=== PATIENT | female | born 1985 | race Caucasian/White ===

== ENCOUNTER 2022-12-11 06:44 | Outpatient (REF) | payer OTHER, SELFPAY ==
[2022-12-11 09:09] LABS: MANUAL DIFF FLAG NO
[2022-12-11 09:21] LABS: Basophils Absolute Auto 0.1 X10*3/uL (0.0-0.2); Basophils Percent Auto 0.7 % (0-2); Eosinophils Absolute Auto 0.2 X10*3/uL (0.0-0.4); Eosinophils Percent Auto 1.3 % (0-4); Hematocrit 43.8 % (37.0-47.0); Hemoglobin 14.5 g/dl (12.0-16.0); Imm Gran Abs Auto 0.06 X10*3/uL (0.00-0.03); Imm Gran Pct Auto 0.5 % (0.0-0.4); Lymphocytes Absolute Auto 2.3 X10*3/uL (1.2-4.9); Lymphocytes Percent Auto 17.6 % (20-40); Mean Corpuscular HGB Conc 33.1 g/dl (31.0-35.0); Mean Corpuscular Volume 96.7 fL (80.0-98.0); Mean Platelet Volume 9.1 fL (9.4-12.3); Monocytes Absolute Auto 0.7 X10*3/uL (0.1-1.2); Monocytes Percent Auto 5.6 % (2-11); Neutrophils Absolute Auto 9.8 x10*3/uL (2.0-8.3); Neutrophils Percent Auto 74.3 % (45-73); Platelet Count 436 X10*3/uL (160-400); Red Blood Count 4.53 X10*6/uL (4.20-5.50); Red Cell Distribution Width 13.7 % (11.0-16.0); White Blood Count 13.1 X10*3/uL (4.8-10.8)
[2022-12-11 09:41] LABS: Alanine Aminotransferase 19 U/L (0-31); Albumin Level 4.3 g/dL (3.5-5.0); Alkaline Phosphatase 68 U/L (39-117); Anion Gap 16 (12-20); Aspartate Amino Transferase 13 U/L (5-31); Bilirubin Total 0.7 mg/dL (0.0-1.0); Blood Urea Nitrogen 9 mg/dL (9-16); Calcium 9.1 mg/dL (8.4-10.2); Carbon Dioxide 25 mmol/L (22-29); Chloride 103 mmol/L (96-108); Cholesterol 165 mg/dL; Estimated Glomerular Filt Rate > 60; Glucose Fasting 84 mg/dL (60-99); HDL Cholesterol 61 mg/dL; LDL Cholesterol Calculated 90 mg/dl; Potassium 3.8 mmol/L (3.3-5.1); Sodium 140 mmol/L (135-145); Total Protein 7.1 g/dL (6.5-8.0); Triglycerides 72 mg/dL
== END 2022-12-11 06:45 | disposition home or self-care (01) ==
LOC: HO.HMGCLDS 06:44
PROVIDERS: PCP Internal Medicine; Visit Provider Internal Medicine
DX: Z00.00 Encounter for general adult medical examination without abnormal findings (principal); E66.3 Overweight
CPT/HCPCS: 36415; 80053; 80061; 85025

== ENCOUNTER 2022-12-26 06:20 | Outpatient (REF) | payer OTHER, SELFPAY ==
[2022-12-26 11:37] LABS: Baso%MD 0.9 %; Eos%MD 1.6 %; Hematocrit 42.1 % (37.0-47.0); Hemoglobin 13.9 g/dl (12.0-16.0); IG%MD 0.3 %; Lymph%MD 19.3 %; Mean Corpuscular Hemoglobin 32.1 pg (27.0-33.0); Mean Corpuscular Volume 97.2 fL (80.0-98.0); Mean Platelet Volume 9.3 fL (9.4-12.3); Mono%MD 8.6 %; Neut%MD 69.3 %; Platelet Count 382 X10*3/uL (160-400); Red Blood Count 4.33 X10*6/uL (4.20-5.50); Red Cell Distribution Width 13.8 % (11.0-16.0); White Blood Count 8.8 X10*3/uL (4.8-10.8)
[2022-12-26 12:11] LABS: Lymphocytes Absolute Manual 1.8 X10*3/uL (1.2-4.9); Lymphocytes Percent Manual 20 % (20-40); Monocytes Absolute Manual 0.3 X10*3/uL (0.1-1.2); Monocytes Percent Manual 3 % (2-11); Neutrophils Percent Manual 77 % (45-73)
[2022-12-26 12:12] LABS: Burr Cells 1+ (0-2) /OIF; Platelet Estimate NORMAL (NORMAL); Platelet Morphology Comment NORMAL; RBC Morphology NOTED
[2022-12-26 14:20] LABS: Band Neutrophils Percent 0 % (3-5); Neutrophils Absolute Manual 6.8 X10*3/uL (2.0-8.3)
== END 2022-12-26 06:21 | disposition home or self-care (01) ==
LOC: HO.HMGCLDS 06:20
PROVIDERS: PCP Internal Medicine; Visit Provider Internal Medicine
DX: D72.829 Elevated white blood cell count, unspecified (principal)
CPT/HCPCS: 36415; 85007; 85027

== ENCOUNTER → 2023-01-06 13:36 | Outpatient (REF) | payer OTHER, SELFPAY ==
--- NOTE | 2023-01-06 13:39 | CA_ITS ---
Transthoracic Echocardiogram Patient (Last, First, Middle): Nirmala Shukla, Gender: Female Date of : 1985 Age: 37 Procedure Date: 01/06/2023 Procedure Type: Transthoracic Echocardiogram Location: OP Height: 152.4 cm Weight: 86.18 kg BSA: 1.83 m2 Heart Rate: bpm BP: 128 / 80 mmHg Used Car Salesperson: Referring MD: Marzena Dale MD Surveillance Monitor: Chad Maldonado MD Symptoms: R01.1 - Cardiac murmur, unspecified Study Quality: Fair ECG Rhythm: Sinus Conclusions: - Essentially normal study Findings Left Ventricle Normal left ventricular size, thickness, and systolic function. The visually estimated ejection fraction is between 55-60%. Spectral Doppler is indicative of a normal filling pattern. Right Ventricle Normal right ventricular cavity size and systolic function. Atria Both atria are normal in size. Interatrial shunt cannot be excluded. Aortic Valve Normal aortic valve structure and function. There is no aortic valve stenosis. There is no aortic valve regurgitation. Mitral Valve Normal mitral valve structure and function. There is trace mitral valve regurgitation. There is no mitral valve stenosis. Pulmonic Valve The pulmonic valve is likely normal. Tricuspid Valve Normal tricuspid valve structure. There is trace tricuspid valve regurgitation. The right ventricular systolic pressure is normal. The right ventricular systolic pressure is 20 mmHg. Normal right atrial pressure. There is no evidence of pulmonary hypertension. Great Vessels All visible segments of the aorta are normal in size. The pulmonary artery was not well visualized. Venous The inferior vena cava is normal in size and collapses greater than 50% with inspiration. Pericardium/Pleural There is no evidence of pericardial effusion. Measurements 2D Linear Measurements IVSd: 0.92 0.6-0.9/0.6-1.0 cm LVIDd: 5.33 3.9-5.3/4.2-5.9 cm LVIDd Index: 2.91 2.4-3.2/2.2-3.1 cm/m2 LVIDs: 3.65 2.0-3.6 cm LVPWd: 1.04 0.7-1.1 cm Ao Root: 2.40 2.1-3.5 cm LA Diam: 4.00 2.7-3.8/3.0-4.0 cm LAIDs Index: 2.19 1.5-2.3 cm/m2 LV Mass: 245.11 67-162/88-224 g LV Mass Index: 133.94 43-95/49-115 g/m2 LVOT Diam: 2.00 3.0+(-)1.3 cm Mitral Valve MV Pk E: 0.75 MV PK A: 1.09 MV Decel Time: 106.00 E/A: 0.70 E'Lateral: 7.51 E'Medial: 7.07 E/E' Med: 10.60 E/E' Lat: 9.90 PHT: 31.00 MVA PHT: 7.10 Decel Hampton: 7.02 Aortic Valve AoV Pk Jason: 1.90 AoV Mn Jason: 1.30 AoV VTI: 0.39 AoV Pk Grad: 14.00 Aov Mn Grad: 8.00 SADAF Cont.VTI: 1.83 LVOT LVOT Pk Jason: 1.08 LVOT Mn Jason: 0.75 LVOT VTI: 0.23 LVOT Pk Grad: 5.00 LVOT Mn Grad: 3.00 LVOT Diam: 2.00 LVOT Area: 3.14 Diastolic Function MV Pk E: 0.75 MV Pk A: 1.09 E/A: 0.70 E'Medial: 7.07 E/E' Med: 10.60 E' Laterial: 7.51 E/E' Lat: 9.90 Right Ventricle TAPSE (mm): 29.00 TVS' Jason: 11.00 Tricuspid Valve TR Pk Jason: 2.05 TR Pk Grad: 17.00 RA Press: 3.00 RVSP: 20.00 Great Vessels Aorta Ao Root-2D: 2.40 2.0-3.7 cm Ao Asc: 3.00 2.1-3.4 cm Pulmonary Valve PV Pk Jason: 1.84 Peak PV Grad: 14.00 Updated in Other Vendor System with Status of Final Chad Maldonado MD electronically signed on 01/07/2023 11:19:28 AM with status of Final
== END ==
LOC: HO.CARD 13:36
PROVIDERS: PCP Internal Medicine; Visit Provider Internal Medicine
DX: R01.1 Cardiac murmur, unspecified (principal)
CPT/HCPCS: 93306

== ENCOUNTER → 2023-01-06 13:39 | Outpatient (BNV) | payer OTHER, SELFPAY | PROVIDERS: PCP Internal Medicine; Visit Provider Internal Medicine Cardiovascular Disease | DX: R01.1 Cardiac murmur, unspecified (principal) | CPT/HCPCS: 93306 ==

== ENCOUNTER 2023-03-21 09:15 | Outpatient (AMB) | payer OTHER, SELFPAY ==
[2023-03-21 09:16] VITALS: BP 140/80; PULSE 116; TEMP 36.6; O2SAT 99; BMI 36.1
--- NOTE | 2023-03-21 09:16 | MHC.OFFWIV ---
Intake Vital Signs 03/21/23 09:16 Height 5 ft Weight 185 lb BMI 36.1 BP 140/80 H Blood Pressure Location Rt brachial Position Sitting Pulse 116 H Pulse Source Pulse Oximeter Temp 97.8 F Temp Source Temporal Artery Scan Pulse Oximetry (%) 99 Intake Visit Reasons: ESt/neck/right shoulder pain Intake Note: pt is here for c/o neck and right shoulder pain Patient Tobacco Use Status: Current everyday Tobacco user Allergies No Known Allergies Allergy (Verified 03/21/23 09:16) Do you need a note to return to daycare/school/sports/work: Yes HPI ESt/neck/right shoulder pain HPI Details pt is here for c/o neck and right shoulder pain PFSH Family History Mother CAD (coronary artery disease), Onset Age: 37 Social History Household Members 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, 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 Housing: Apartment Patient Tobacco Use Status: Current everyday Tobacco user Current occupational status: employed Cognitive needs: No Hearing needs: No Vision needs: No Review of Systems Const All systems reviewed & are unremarkable except as noted in HPI and below Physical Exam Vital Signs: Last Vital Signs Temp 97.8 F 03/21/23 09:16 Pulse 116 H 03/21/23 09:16 BP 140/80 H 03/21/23 09:16 Pulse Ox 99 03/21/23 09:16 BMI result Body Mass Index 36.1 Const General: cooperative, healthy appearing, comfortable, no acute distress, alert, awake, Physically active and well groomed; No anxious, diaphoretic, ill appearing, intoxicated appearing, poor hygiene or tired appearing Nutritional Appearance: average body habitus Orientation/consciousness: oriented to person Limitations: no limitations Resp Effort & Inspection: normal respiratory effort Cardio Rate: regular rate Rhythm: regular rhythm Skin Other: Good color, warm and dry Neuro General: oriented to person Extrem Right upper extremity: normal to inspection, full ROM, normal capillary refill, shoulder/upper arm (Tenderness to the trapezial muscle) Details: normal to inspection, tenderness, axillary nerve sensory function normal and normal ROM; no swelling and no deformity and Extremity exam: right hand Details: normal to inspection, normal capillary refill, neuromotor exam normal and no swelling; no cyanosis and no edema Psych Appearance: grossly normal Mental Status: mental status grossly normal Speech and movement: Normal speech and movement present Affect: normal affect Attitude: cooperative Thought process: Normal thought process present Insight: Good insight present (Psych) Judgement: Good judgement present (Psych) Assessment & Plan Assessment & Plan (1) Muscle spasm: Code(s): M62.838 - Other muscle spasm Plan: patient is a 37-year-old female with an apparent right trapezius spasm, that seems to be pinching a nerve and causing radicular symptoms down the arm. She is definitely tight in the trapezius, with increase in pain with range of motion. There appears to be no issue with the right shoulder joint itself. We discussed heat stretching and massage, and I wrote her for anti-inflammatory and muscle relaxer for use as needed. She does state that she usually sleeps on that side, so we discussed trialing sleep on the opposite side and propping for positioning. She will follow up if symptoms persist or worsen, or go to the emergency department with worrisome symptoms. Orders: Orders XR cervical spine 4V 03/21/23 M62.838 - Other muscle spasm Medications: New ibuprofen 800 mg PO Q8H PRN 30 tabs 0RF pain cyclobenzaprine 5 mg PO TID PRN 14 tabs 0RF muscle spasm Coding Level of Care Code Est Pt Level 4 (70717) Diagnoses Muscle spasm M62.838
== END 2023-03-21 09:54 | disposition home or self-care (01) ==
PROVIDERS: PCP Internal Medicine; Visit Provider Physician Assistant Medical
DX: M62.838 Other muscle spasm (principal)
CPT/HCPCS: 99051; 99214

== ENCOUNTER 2023-03-21 09:33 | Outpatient (REF) | payer OTHER, SELFPAY ==
--- NOTE | ~2023-03-21 | XR_ITS ---
EXAMINATION: XR CERVICAL SPINE CLINICAL INFORMATION: 3 weeks upper shoulder/back pain that radiates into right shoulder/arm. COMPARISON: None available. TECHNIQUE: 5 views of the cervical spine were obtained. FINDINGS: The cervical spine is visualized in its entirety. Alignment is within normal limits. Normal C1/2 articulation. Cervical vertebral body heights and disc spaces are well-maintained. Neural foramina are widely patent bilaterally. No prevertebral soft tissue swelling. Visualized lung apices are well aerated. XR/XR cervical spine 4V IMPRESSION: Unremarkable radiographs of the cervical spine.
== END 2023-03-21 09:34 | disposition home or self-care (01) ==
LOC: HO.HMGCX 09:33
PROVIDERS: PCP Internal Medicine; Visit Provider Physician Assistant Medical
DX: M62.838 Other muscle spasm (principal)
CPT/HCPCS: 72050

== ENCOUNTER 2023-05-05 12:27 | Outpatient (AMB) | payer OTHER, SELFPAY ==
--- NOTE | 2023-05-05 12:41 | A.OFFPC_ITS ---
Vital Signs 05/05/23 12:42 Height 5 ft Weight 179 lb BMI 35.0 BP 130/76 Blood Pressure Location Lt brachial Position Sitting Pulse 79 Pulse Source Pulse Oximeter Pulse Oximetry (%) 98 Oxygen Delivery Method Room Air Intake Visit Reasons: Pinched nerve in neck causing numbness down arm Intake Note: Pt is here today for a sick visit. Pt c/o pinched nerve in her neck, pt c/o numbness in her R arm. Pt states that she was seen in a walk in for this and its not getting better. Allergies No Known Allergies Allergy (Verified 03/21/23 09:16) Tobacco use date assessed: 12/09/22 HPI Pinched nerve in neck causing numbness down arm HPI Details Pt presents complaining of R side neck radiating to R shoulder and tingling sensation radiating from right shoulder to R index and thumb finger on and off worse when sitting or laying on the right side since January. Patient denies any injury. 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 She tried ibuprofen on and off with some relief and had a normal C-spine x-ray. 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 Housing: Apartment Patient Tobacco Use Status: Current everyday Tobacco user Current occupational status: employed Cognitive needs: No Hearing needs: No Vision needs: No Review of Systems Const All systems reviewed & are unremarkable except as noted in HPI and below Reports no additional complaints Eyes Reports no additional complaints ENT Reports no additional complaints Card Reports no additional complaints Resp Reports no additional complaints GI Reports no additional complaints Reports no additional complaints Physical exam (Primary Care) Vital Signs: Last Vital Signs Pulse 79 05/05/23 12:42 BP 130/76 05/05/23 12:42 Pulse Ox 98 05/05/23 12:42 Oxygen Delivery Method Room Air 05/05/23 12:42 BMI result Body Mass Index 35.0 Tobacco/Smoking Status: Tobacco use Status Tobacco use date assessed 12/09/22 05/05/23 12:41 Patient Tobacco Use Status Current everyday Tobacco 05/05/23 12:41 Const General: no acute distress HENMT Head: Yes normal to inspection Face and sinus: Yes normal facial exam Neck Neck: Yes no lymphadenopathy and Yes supple Resp Effort & Inspection: normal respiratory effort Auscultation: clear to auscultation bilaterally Cardio Rhythm: regular rhythm Heart sounds: S1 normal heart sound present and S2 normal heart sound present Back/Spine/Pelvis Other: Paraspinal tenderness in the right lower cervical region, right shoulder - full range of motion, motor strength 5/5 of both upper extremities proximal and distal, right hand automotive service assistant 5/5, deep tendon reflexes 2+ bilaterally in upper extremities Assessment and Plan Assessment & Plan (1) Cervical radicular pain: Code(s): M54.12 - Radiculopathy, cervical region Plan: try physical therapy and right wrist brace at night, follow-up in 1 month. If the symptoms persist MRI will be obtained Orders: Orders PT Evaluation and Treatment Today M54.12 - Radiculopathy, cervical region Coding Level of Care Code Est Pt Level 3 (21949) Diagnoses Cervical radicular pain M54.12
[2023-05-05 12:42] VITALS: BP 130/76; PULSE 79; O2SAT 98; BMI 35.0
== END 2023-05-05 13:18 | disposition home or self-care (01) ==
PROVIDERS: PCP Internal Medicine; Visit Provider Internal Medicine
DX: M54.12 Radiculopathy, cervical region (principal)
CPT/HCPCS: 99213

== ENCOUNTER 2023-06-05 09:00 | Outpatient (RCR) | payer OTHER, SELFPAY ==
--- NOTE | 2023-05-12 09:18 | MHC.PT.EP ---
[facility] [place] Office [place] Office [place] Office [address] Una Hansen [address] [phone] F: [phone] F: [phone] F: [phone] F: [phone] Physical Therapy Plan of Care Date of Evaluation: 05/12/23 Date of Surgery: Diagnosis: This is a 37 female presenting to skilled PT with a script for radiculopathy, cervical region. Assessment: This is a 37 female presenting to skilled PT with a script for radiculopathy, cervical region. Patient reporting ongoing symptoms that have been getting worse since January of this year. Pain starts at lateral R side of c-spine, radiates into the scap, down the posterior and lateral arm/humerus and into the first 2 digits. She has numbness in the digits, entire arm is dull and achy and tingling and this is throughout the entire arm. 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 Patient reports symptoms increase when I'm relaxed - sitting on the couch, laying down, driving . No change in position improves her symptoms. Assessment reveals pain that ranges from up to a 7/10 at the worst. Patient demos decreased R shoulder and R cervical ROM, strength of R shoulder and fertilizer loader strength, TTP at c-spine, UT and impaired posture with forward head and rounded shoulders. She demos a prominent C7. Based on functional limitations, impaired QOL and pain tolerance patient is a good candidate for skilled PT 2x/wk for 5wks. Frequency and Duration: The patient will be seen 2x/wk for 5 wks Short Term Goals: (in 2 wks) I in HEP Improve cervical ROM to the R by at least 10 degs Demo proper cervical positioning with progression of UB strengthening exercises without cues from PT Intermediate Goals: (In 4 wks) Centralize symptoms for at least 1 week Report 50% improvement in QOL Tolerate sleeping through the night without waking from pain Improve NDI by 10 points Improve pain to no more than 2/10 at the worst Treatment Plan: Modalities to reduce pain, spasms and effusion. Manual therapy to restore motion and function. Therapeutic exercise to improve strength and flexibility. Neuromuscular re-education for posture and balance. Therapeutic activities to return to functional activities of daily living. Electronically signed by: Radha Carpenter PT Please sign and return to therapist. Thank you for your referral.
--- NOTE | 2023-06-25 08:32 | MHC.PT.DC ---
[facility] [place] Office [place] Office [place] Office [address] Una Hansen [address] [phone] F: [phone] F: [phone] F: [phone] F: [phone] Physical Therapy Discharge Report Diagnosis: This is a 37 female presenting to skilled PT with a script for radiculopathy, cervical region. Date of Surgery: Date of Evaluation: 05/12/23 Date of Discharge: 06/25/23 Treatments to Date: 4 Cancellations to Date: 0 No Shows to Date: 0 Discharge Status: Achieved Goals Improved Function Independent with HEP Discharge Summary: At the last tx note 05/26: Patient reports that she has not had any symptoms as of the last week and a half. She has also not having to take ibuprofen to manage pain at night. 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 We weaned to 1x/wk, has followed up with PCP and was educated on a new HEP for general strengthening to progress to I gym program. She has met her goals, centralized her symptoms and understands how to manage her pain if it returns. Electronically signed by: Radha Carpenter PT Please sign and return to therapist. Thank you for your referral.
== END 2023-06-25 08:32 | disposition home or self-care (01) ==
LOC: HO.PTCHIC 09:00
PROVIDERS: PCP Internal Medicine; Visit Provider Internal Medicine
DX: M54.12 Radiculopathy, cervical region (principal)
CPT/HCPCS: 97110; 97140; 97161; 97162

== ENCOUNTER 2023-10-01 08:05 | Outpatient (AMB) | payer OTHER, SELFPAY ==
[2023-10-01 08:16] VITALS: BP 128/76; PULSE 83; O2SAT 98; BMI 32.2
--- NOTE | 2023-10-01 08:16 | A.OFFPC_ITS ---
Vital Signs 10/01/23 08:16 Height 5 ft Weight 165 lb BMI 32.2 BP 128/76 Blood Pressure Location Rt brachial Position Sitting Pulse 83 Pulse Source Pulse Oximeter Pulse Oximetry (%) 98 Oxygen Delivery Method Room Air Intake Visit Reasons: Med help with alcoholism OK per CÉSAR Intake Note: Pt is here today for a follow up visit to discuss some questions. Allergies No Known Allergies Allergy (Verified 10/01/23 08:16) Medication List - Last Reconciled 10/01/23 by Marzena Dale MD bupropion HCl XL (Wellbutrin XL) 150 mg PO DAILY etonogestrel (Nexplanon) subdermal Tobacco use date assessed: 10/01/23 Dental Screening Dental Screen Date: 10/01/23 Did you have a dental visit in the last 12 months?: No Did you have a dental problem in the last 6 months where you did not have access to dental care?: Yes Was dental information given to patient?: Yes HPI Med help with alcoholism OK per CÉSAR HPI Details Pt presents for the follow-up. She complains of intermittent recurrent alcohol abuse. She has been in counseling weekly for the last year and started AA meetings twice a week. Patient reports episodes of being sober for a month at the time but also binge drinking up to 4 days. Patient denies insomnia but reports feeling depressed and anxious and crying a lot. She denies suicidal ideation. 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 1. Little interest or pleasure in doing things: several days 2. Feeling down, depressed, or hopeless: several days 3. Trouble falling or staying asleep, or sleeping too much: not at all 4. Feeling tired or having little energy: not at all 5. Poor appetite or overeating: not at all 6. Feeling bad about yourself - or that you are a failure or have let yourself or your family down: more than half the days 7. Trouble concentrating on things, such as reading the newspaper or watching television: several days 8. Moving or speaking so slowly that other people could have noticed. Or the opposite - being so fidgety or restless that you have been moving around a lot more than usual: not at all 9. Thoughts that you would be better off or of hurting yourself in some way: not at all Total score: 5 Depression Screening Interpretation: Negative Depression Screening Done: Yes Source: Developed by Drs. Delmer Hyatt, Maryjane Adams, Alexis Sears and colleagues, with an educational sharan from [employer]. Thrive Questionnaire Date Thrive assessed: 10/01/23 I am a: Patient What is your living situation today?: I have a steady place to live Within the past 12 months, did the food you bought not last and you didn't have the money to get more?: Never true Within the past 12 months, did you worry whether your food would run out before you got money to buy more?: Never true Do you have trouble paying for medicines?: No Do you have trouble getting transportation to medical appointments?: No Do you have trouble paying your heating and electricity bill?: No Do you have trouble taking care of your child, family member or friend?: No Do you have trouble with day-to-day activities such as bathing, preparing meals, shopping, managing finances, etc.?: No Are you currently unemployed and looking for a job?: No Are you interested in more education?: No Please select the resources that you would like help with: None THRIVE Score: 0 AUDIT C Alcohol Use Questionnaire (AUDIT-C) 1. How often do you have a drink containing alcohol?: 2-4 times a month 2. How many drinks containing alcohol do you have on a typical day when you are drinking?: 10 or more 3. How often do you have six or more drinks on one occasion?: Monthly Total Score: 8 JOSE-7 AMB Questionnaire JOSE-7 Date JOSE - 7 assessed: 10/01/23 Feeling nervous, anxious, or on edge: 2 = More than half the days Not being able to stop or control worryin = Several days Worrying too much about different things: 2 = More than half the days Trouble relaxin = Not at all Being so restless that it is hard to sit still: 0 = Not at all Becoming easily annoyed or irritable: 1 = Several days Feeling afraid as if something awful might happen: 1 = Several days Total JOSE-7 score (0-4 normal; 5-9 mild; 10-14 moderate; 15-21 severe): 7 Source: Developed by Drs. Delmer Hyatt, Maryjane Adams, Alexis Sears and colleagues, with an educational sharan from [employer]. Review of Systems Const All systems reviewed & are unremarkable except as noted in HPI and below Reports no additional complaints Eyes Reports no additional complaints ENT Reports no additional complaints Card Reports no additional complaints Resp Reports no additional complaints GI Reports no additional complaints Reports no additional complaints Physical exam (Primary Care) Vital Signs: Last Vital Signs Pulse 83 10/01/23 08:16 BP 128/76 10/01/23 08:16 Pulse Ox 98 10/01/23 08:16 Oxygen Delivery Method Room Air 10/01/23 08:16 BMI result Body Mass Index 32.2 Tobacco/Smoking Status: Tobacco use Status Tobacco use date assessed 10/01/23 10/01/23 08:25 Patient Tobacco Use Status Current everyday Tobacco 10/01/23 08:17 e-Cigarette/Vaping Use Former Use 10/01/23 08:25 Depression Screening Interpretation: Negative Const General: no acute distress Neck Neck: Yes supple Resp Effort & Inspection: normal respiratory effort Auscultation: clear to auscultation bilaterally Cardio Rhythm: regular rhythm Heart sounds: S1 normal heart sound present and S2 normal heart sound present Assessment and Plan Assessment & Plan (1) EtOH dependence: Comment: IN COUNSELING AND AA PROGRAM SINCE 2022 Code(s): F10.20 - Alcohol dependence, uncomplicated Plan: CONTINUE COUNSELING AND AA PROGRAM. BUPROPION 150 MG DAILY WILL BE STARTED AND SIDE EFFECTS DISCUSSED WITH THE PATIENT. SHE WILL FOLLOW-UP IN 1 MONTH Medications: New bupropion HCl XL (Wellbutrin XL) 150 mg PO DAILY 90 tabs 0RF Coding Level of Care Code Est Pt Level 3 (98943) Diagnoses EtOH dependence F10.20
== END 2023-10-01 09:23 | disposition home or self-care (01) ==
PROVIDERS: PCP Internal Medicine; Visit Provider Internal Medicine
DX: F10.20 Alcohol dependence, uncomplicated (principal); F17.210 Nicotine dependence, cigarettes, uncomplicated
CPT/HCPCS: 99213

== ENCOUNTER 2024-01-21 07:51 | Outpatient (AMB) | payer OTHER, SELFPAY ==
[2024-01-21 07:55] VITALS: BP 120/76; PULSE 81; O2SAT 98; BMI 30.3
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
== END 2024-01-21 08:21 | disposition home or self-care (01) ==
PROVIDERS: PCP Internal Medicine; Visit Provider Internal Medicine
DX: Z00.00 Encounter for general adult medical examination without abnormal findings (principal); Z01.419 Encounter for gynecological examination (general) (routine) without abnormal findings; F10.20 Alcohol dependence, uncomplicated
CPT/HCPCS: 99396

== ENCOUNTER 2024-01-21 08:21 | Outpatient (REF) | payer OTHER, SELFPAY ==
[2024-01-21 10:56] LABS: MANUAL DIFF FLAG NO
[2024-01-21 10:58] LABS: Appearance Urine Turbid; Color Urine Yellow; Glucose Urine UA Negative (Negative); Leukocyte Esterase Urine Negative (Negative); Nitrite Urine Negative (Negative); PH >= 9.0 (5.0-9.0); UMIC TRIGGER UA YES; Urine Blood Small (1+) (Negative); Urine Ketones Negative (Negative); Urine Protein Trace mg/dL (Neg-Trace)
[2024-01-21 11:04] LABS: Bacteria Urine None Seen (None Seen); Hyaline Casts Urine 0-2 /LPF (0-2); RBC Urine >20 /HPF (0-2); Squamous Epithelial Cell Urine 0-2 /HPF (0-2); WBC Urine 0-5 /HPF (0-5)
[2024-01-21 11:15] LABS: Basophils Absolute Auto 0.1 X10*3/uL (0.0-0.2); Eosinophils Absolute Auto 0.1 X10*3/uL (0.0-0.4); Eosinophils Percent Auto 1.6 % (0-4); Hematocrit 43.3 % (37.0-47.0); Hemoglobin 14.4 g/dl (12.0-16.0); Imm Gran Abs Auto 0.01 X10*3/uL (0.00-0.03); Imm Gran Pct Auto 0.1 % (0.0-0.4); Lymphocytes Percent Auto 24.5 % (20-40); Mean Corpuscular HGB Conc 33.3 g/dl (31.0-35.0); Mean Corpuscular Hemoglobin 31.6 pg (27.0-33.0); Mean Corpuscular Volume 95.2 fL (80.0-98.0); Mean Platelet Volume 9.3 fL (9.4-12.3); Monocytes Absolute Auto 0.7 X10*3/uL (0.1-1.2); Monocytes Percent Auto 8.2 % (2-11); Neutrophils Absolute Auto 5.2 x10*3/uL (2.0-8.3); Neutrophils Percent Auto 64.6 % (45-73); Platelet Count 373 X10*3/uL (160-400); Red Blood Count 4.55 X10*6/uL (4.20-5.50); White Blood Count 8.1 X10*3/uL (4.8-10.8)
[2024-01-21 11:45] LABS: Alanine Aminotransferase 19 U/L (0-31); Albumin Level 4.4 g/dL (3.5-5.0); Alkaline Phosphatase 46 U/L (39-117); Anion Gap 15 (12-20); Aspartate Amino Transferase 14 U/L (5-31); Bilirubin Total 0.5 mg/dL (0.0-1.0); Blood Urea Nitrogen 16 mg/dL (9-16); Calcium 9.6 mg/dL (8.4-10.2); Carbon Dioxide 23 mmol/L (22-29); Chloride 108 mmol/L (96-108); Cholesterol 172 mg/dL (<200); Estimated Glomerular Filt Rate > 60; Glucose Fasting 98 mg/dL (60-99); HDL Cholesterol 51 mg/dL (>40); LDL Cholesterol Calculated 110 mg/dL (<100); Potassium 3.8 mmol/L (3.3-5.1); Sodium 142 mmol/L (135-145); Total Protein 6.8 g/dL (6.5-8.0); Triglycerides 56 mg/dL (<150); Vitamin D 25-OH Total 97.7 ng/mL (>30)
== END 2024-01-21 08:22 | disposition home or self-care (01) ==
LOC: HO.HMGCLDS 08:21
PROVIDERS: PCP Internal Medicine; Visit Provider Internal Medicine
DX: Z00.00 Encounter for general adult medical examination without abnormal findings (principal)
CPT/HCPCS: 36415; 80053; 80061; 81001; 82306; 85025

== ENCOUNTER 2025-01-11 06:59 | Outpatient (AMB) | payer OTHER, SELFPAY ==
--- OUTSIDE RECORDS SUMMARY | 2025-01-11 07:01 | XMS_ITS | Patient Health Record ---
Author Organization [employer] Address [address] [place] [address] Care Team Providers Care Access Consultant Name Role Phone HUAN GRAJEDA Unavailable [phone] Allergies No Known Allergies Results Component Value Reference Range Notes [id number] IGP No Culture 30 Plus Reviewed date:01/19/2024 08:16:21 AM Interpretation: Performing Lab:[facility] [place], [address], [address], [place], Phone - [phone], Director - [facility] Notes/Report: Clinical Information:CERVICAL, LMP 12/23/23 . ATYPICAL ENDOCERVICA L CELLS, S Source.............Cervix LMP / Prev Treat...[id number];Isle / BX Dates / Results....12/16/22 No. of containers..01 ThinPrep Vial DIAGNOSIS: NEGATIVE FOR IN TRAEPITHELIAL LESION OR MALIGNANCY. Specimen adequacy: Satisfact ory for evaluation. No endocervical component is identified. Clinician provided ICD10: Z0 1.419 Performed by: Rome dodd Marketing Content Specialist (ASCP) . . Note: The Pap smear is a screening test designed to aid in the detection of premalignant and malignant conditions of the uterine cervix. It is not a diagnostic procedure and should not be used as the sole means of detecting cervical cancer. Both false-positive and false-negative reports do occur. . Test Methodology: This liquid based ThinPrep(R) pap test was screened with the use of an image guided system. HPV Aptima Negative Negative This nucleic acid amplification test detects fourteen high-risk HPV types (16,18,31,33,35,39,45,51,52,56,5 8,59,66,68) without differentiation. HPV Genotype Reflex Criteria not met, HPV Genotype not performed. Test, Urine Reviewed date:05/05/2024 09:32:11 AM Interpretation: Performing Lab: Notes/Report: Test, Urine NEG PDF Report Reviewed date:01/19/2024 08:16:33 AM Interpretation: Performing Lab:[facility] [place], [address], [address], [place], Phone - [phone], Director - [facility] Notes/Report: Clinical Information:CERVICAL, LMP 12/23/23 . ATYPICAL ENDOCERVICA L CELLS, S Source.............Cervix LMP / Prev Treat...[id number];Isle / BX Dates / Results....12/16/22 No. of containers..01 ThinPrep Vial Reason For Referral No Information Medications Medication SIG (Take, Route, Frequency, Duration) Notes Start Date End Date Status Naltrexone HCl 50 MG Oral; Duration: 28 Days Active buPROPion HCl ER (XL) 150 MG Oral; Duration: 90 Days Active Nexplanon 68 MG 1 Implant Subcutaneous Once every 3 years; Duration: 999 days Replaced 05/05/24 01/20/2024 Active Social History Tobacco Use: Social History Observation Description Date Details (start date - stop date) Current Smoker NA - NA Sexual History Question Answer Notes Had sex in the past 12 months (vaginal, oral, or anal)? Yes with Men only Prevention strategies discussed: Other Tobacco use other than smoking: Question Answer Notes Are you an other tobacco user? No AUDIT-C (Standard) Question Answer Notes Did you have a drink containing alcohol in the p ast year? No Points 0 Interpretation Negative Tobacco Control (Standard) Question Answer Notes Tobacco use: Current smoker How often do you smoke cigarettes? Every day How many cigarettes a day do you smoke? 11-20 Are you interested in quitting? Thinking about q uitting Problems Problem Type SNOMED Code ICD Code Onset Dates Problem Status W/U Status Risk Notes Problem Atypical squamous cells of undetermined significance on cervical Papanicolaou smear (196976990) Atypical squamous cells of undetermined significance on cytologic smear of cervix (ASC-US) (R87.610) Active confirmed Problem Nondependent alcohol abuse in remission (121532409) Alcohol abuse, in remission (F10.11) Active confirmed Problem Tobacco user (611713618) Nondependent tobacco use disorder (305.1) Active confirmed Major Vital Signs Temperature 98.4 degrees Fahrenheit 05/16/2024 Blood pressure diastolic 62 mm Hg 05/16/2024 Height 60 in 05/16/2024 Blood pressure systolic 124 mm Hg 05/16/2024 Weight 156 lbs 05/16/2024 BMI 30.46 kg/m2 05/16/2024 Encounters Encounter Location Date Provider Diagnosis [facility] [employer] [facility] [address] [address] 01/14/2024 HUAN GRAJEDA Encounter for gynecological examination (general) (routine) without abnormal findings Z01.419 ; Encounter for screening mammogram for malignant neoplasm of breast Z12.31 and Encounter for surveillance of implantable subdermal contraceptive Z30.46 [facility] [employer] [employer] [address] [address] 05/05/2024 HUAN GRAJEDA Encounter for surveillance of implantable subdermal contraceptive Z30.46 and Encounter for initial prescription of implantable subdermal contraceptive Z30.017 [facility] [employer] [facility] [address] [address] 05/16/2024 HUAN GRAJEDA Encounter for surveillance of implantable subdermal contraceptive Z30.46 [facility] [employer] [employer] [address] [address] 01/20/2024 HUAN GRAJEDA Assessments Encounter Date Diagnosis (ICD Code) Assessment Notes Treatment Notes Treatment Clinical Notes Section Notes 01/14/2024 Encounter for gynecological examination (general) (routine) without abnormal findings (ICD-10 - Z01.419) Discussed cervical cancer screening with either cytology alone every 3 years or high risk HPV co-testing every 5 years as per ASCCP guidelines. Advised continued annual pelvic exams. Patient encouraged to increase her level of exercise. SBE technique encouraged/taug ht. Patient reminded when annual mammogram is due. 01/14/2024 Encounter for screening mammogram for malignant neoplasm of breast (ICD-10 - Z12.31) 05/05/2024 Encounter for surveillance of implantable subdermal contraceptive (ICD-10 - Z30.46) 05/16/2024 Encounter for surveillance of implantable subdermal contraceptive (ICD-10 - Z30.46) Continue Nexplanon for 3 years. Monitor bleeding. Reviewed importance of safer sex and encouraged condom use. 01/14/2024 Encounter for surveillance of implantable subdermal contraceptive (ICD-10 - Z30.46) Return in 04/2024 for replacement 05/05/2024 Encounter for initial prescription of implantable subdermal contraceptive (ICD-10 - Z30.017) Plan Of Treatment Pending Test Test Name Order Date Test, Urine 02/05/2023 THIN PREP,HPV,GUERA IF HPV+ (>29YR)(SCRN) 01/27/2018 MM Digital Screening Mammogram 3D 2023 Next Appt Details Provider Name:HUAN Machuca, 01/13/2025 09:00:00 AM, [address], [address], [place], [address], Insurance Providers Payer Name Payer Address Payer Phone Subscriber Number Group Number Insured Name Patient Relationship to Insured Coverage Start Date Coverage End Date [employer] [address] [address] [place] [address] [id number] NAVIN VELEZ Self - patient is the insured Medical (General) History Medical History History ICD Code Nicotine dependence, unspecified, uncomp licated F17.200 Alcohol abuse, in remission F10.11 Atypical squamous cells of u ndetermined significance on cytologic smear of cervix (ASC-US) R87.610 Other abnormal cytological findings on s pecimens from cervix uteri R87.618 Surgical History Surgery Date(Month/Year) LEEDragan 1997
[2025-01-11 07:04] VITALS: BP 114/78; PULSE 80; TEMP 37; O2SAT 99; BMI 31.1
--- NOTE | 2025-01-11 07:04 | AM.OFFWIN_ITS ---
Intake Vital Signs 01/11/25 07:04 Height 5 ft Weight 159 lb 4 oz BMI 31.1 BP 114/78 Blood Pressure Location Lt brachial Position Sitting Pulse 80 Pulse Source Pulse Oximeter Temp 98.6 F Temp Source Oral Pulse Oximetry (%) 99 Oxygen Delivery Method Room Air Intake Visit Reasons: EP Rt knuckle pain Intake Note: Patient presents sore knuckles no injury. 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 Said she woke up and felt stiffness in her hands and knuckles Mostly digits 2-4 No trauma or injury No similar symptomd to left hand Unable to bend well this am, but improved Took ibuproen which helped She denies numbness but states chronic tingling; 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 PFSH Surgical History No pertinent past surgical history Family History Mother CAD (coronary artery disease), Onset Age: 37 Social History Household 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6 F 01/11/25 07:04 Pulse 80 01/11/25 07:04 BP 114/78 01/11/25 07:04 Pulse Ox 99 01/11/25 07:04 Oxygen Delivery Method Room Air 01/11/25 07:04 BMI result Body Mass Index 31.1 General: Non-toxic, NAD. Speaking full sentences. Skin: Warm dry throughout Hands appear equal in size and shape bilaterally. No erythema or ecchymosis to dorsal or palmar aspect R hand. No lacerations, abrasions or lesions Eye: EOMI Cardiac: Radial pulse intact RUE. Cap refill < 2 seconds MSK: Minimal discomfort to palpation of MCP joint digit 2-4 on R hand. No ttp carpal bones, metacarpals, digits 1 and 5 or flexion/extensor tendons of all digits RUE. + full ROM flexion and extension of all digits R hand. Neurology: Alert. Sensation intact RUE. No aphasia or facial droop. Gait without abnormality Psych: Good mood and affect Assessment & Plan Assessment & Plan (1) Hand tendonitis: Code(s): M77.8 - Other enthesopathies, not elsewhere classified Plan: No trauma or oncern fx Pt young without visual deformity; potentially small amount of osteoarthritis but does not change care management with xray imaging Discussed meloxicam as prescribed (take with food. avoid alcohol, nsaids) Ice hand after activity F/U with PCP Pt gave verbal understanding and had no additional questions at this time Medications: New meloxicam 7.5 mg PO DAILY PRN 14 tabs 0RF pain Coding Level of Care Code Est Pt Level 3 (50564) Diagnoses Hand tendonitis M77.8
== END 2025-01-11 07:49 | disposition home or self-care (01) ==
PROVIDERS: PCP Internal Medicine; Visit Provider Physician Assistant
DX: M77.8 Other enthesopathies, not elsewhere classified (principal)

== ENCOUNTER → 2025-01-11 06:59 | Outpatient (BNVA) | payer OTHER, SELFPAY | PROVIDERS: PCP Internal Medicine; Visit Provider Physician Assistant | DX: M79.641 Pain in right hand (principal); M77.8 Other enthesopathies, not elsewhere classified | CPT/HCPCS: 99212 ==

== ENCOUNTER 2025-01-20 13:15 | Outpatient (AMB) | payer OTHER, SELFPAY ==
--- OUTSIDE RECORDS SUMMARY | 2025-01-13 05:00 | XMS_ITS ---
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 Name Role Phone HUAN GRAJEDA Unavailable [phone] REASON FOR VISIT Annual AIR EXPORT AGENT Physical Encounters Encounter Location Date Provider Diagnosis [facility] [address] [facility] [address] [place] [address] 01/13/2025 HUAN GRAJEDA Encounter for gynecological examination (general) (routine) without abnormal findings Z01.419 ; Encounter for screening mammogram for malignant neoplasm of breast Z12.31 ; Encounter for screening for infections with a predominantly sexual mode of transmission Z11.3 and Encounter for surveillance of implantable subdermal contraceptive Z30.46 Assessments Encounter Date Diagnosis (ICD Code) Assessment Notes Treatment Notes Treatment Clinical Notes Section Notes 01/13/2025 Encounter for gynecological examination (general) (routine) without abnormal findings (ICD-10 - Z01.419) Discussed cervical cancer screening with either cytology alone every 3 years or high risk HPV co-testing every 5 years as per ASCCP guidelines. Advised continued annual pelvic exams. Patient encouraged to increase her level of exercise. SBE technique encouraged/tau ght. Patient reminded when annual mammogram is due. 01/13/2025 Encounter for screening mammogram for malignant neoplasm of breast (ICD-10 - Z12.31) 01/13/2025 Encounter for screening for infections with a predominantly sexual mode of transmission (ICD-10 - Z11.3) 01/13/2025 Encounter for surveillance of implantable subdermal contraceptive (ICD-10 - Z30.46) Plan Of Treatment Treatment Notes Assessment Notes Encounter for gynecological examination (general) (routine) without abnormal findings Discussed cervical cancer screening with either cytology alone every 3 years or high risk HPV co-testing every 5 years as per ASCCP guidelines. Advised continued annual pelvic exams. Patient encouraged to increase her level of exercise. SBE technique encouraged/taught. Patient reminded when annual mammogram is due. Pending Test Test Name Order Date MM Digital Screening Mammogram 3D 2024 Next Appt Details Follow Up: 1 Year, Reason: Y early Line Tender Exam Provider Name:HUAN Machuca, 03/23/2025 10:30:00 AM, [address] [facility], [address], [place], [address], Progress Notes * NIRMALA VELEZDOB:1985 (39 yo F)Acc No.[id number]:01/13/2025 PROGRESS NOTES Patient: NIRMALA DENSON Provider: Vinh GRAJEDA MD :1985 A ge:39 Y S ex:Female Date:01/13/2025 Address:[address] [place], [place] [id number] Subjective: * Chief Complaints: * 1 . Annual AIR EXPORT AGENT Physical. 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 S he has been in state of good health since her last exam. She has the following concerns: none* She *stopped drinking about 15 months ago, using Naltexone and has been doing well. S he has received the Moderna Covid-19 vaccine. R elationship status: *partnered for 15 years. They live together and she feels safe at home. She is sexually active. Sexual partner(s): male. She does not wish to have STI testing. M enses: *irregular since colposcopy, moderate to light bleeding with no schedule. C ontraception: Nexplanon - replaced 05/05/2024 - she loves it. Due for replacement in 04/2027. She does *not have vaginal dryness. She does* report she has some mild h ot flashes/night sweats. T he patient has had an abnormal pap smear within the last 5 years - h/o abno pap with LEEP in her teens, and WNL until 2022 Her most recent pap smear was 01/14/24 - NIL, neg HR HPV. The previous pap was 12/16/22 - atypical endocervical cells, neg HR HPV. Colposcopy and ECC were negative. She is due for a pap today. She has not been diagnosed with breast cancer. She does *not have a family history of breast cancer. She has *not yet had a mammogram. T he patient does* exercise. She exercises x 6-7 days/week by walking 2 miles/day. She does strength training here and there. . * ROS: A nnual Line Tender Exam ROS: Bowel habit changes d enies. B ladder symptoms d enies. V aginal discharge, unusual d enies. V aginal itch or odor d enies. a bnormal bleeding d enies. w eight or appetite changes d enies. C hest pains, SOB d enies. d epression d enies. B reast: Denies B reast lump. D enies N ipple discharge.? H ematology: Denies S wollen glands. S kin: Patient denies c hanging moles. P sychiatric: Denies A nxiety. * Medical History: Objective: * Vitals: * Examination: G eneral Examination: GENERAL APPEARANCE: i n no acute distress, well developed, well nourished, drawer in jacquard loom present in room. HEAD: n ormocephalic, atraumatic. NECK/THYROID: n andrew supple, full range of motion, thyroid normal. LYMPH NODES: n o axillary or supraclavicular adenopathy.? SKIN: normal, good turgor, no rashes, no suspicious lesions. BREASTS: normal, no dimpling, no discharge, no drainage, no masses palpable bilaterally, nontender. ABDOMEN: soft, non-tender, non distended without masses or hepatosplenomegay. RECTAL: normal tone, no masses palpable. BACK: no costovertebral angle tenderness. FEMALE GENITOURINARY: V ulva without lesions or masses, vagina pink without abnormal discharge, lesions or masses, cervix appears normal and is not tender to palpation, uterus is normal size, mobile, nontender and anteverted, ovaries are not palpable. EXTREMITIES: N explanon palpable over triceps. NEUROLOGIC: alert and oriented, gait normal. PSYCH: alert, oriented, cognitive function intact, cooperative with exam, good eye contact, mood/affect full range, speech clear. Assessment: * Assessment: 1. E ncounter for gynecological examination (general) (routine) without abnormal findings - Z01.419 (Primary) 2 . E ncounter for screening mammogram for malignant neoplasm of breast - Z12.31 3 . E ncounter for screening for infections with a predominantly sexual mode of transmission - Z11.3 4 . E ncounter for surveillance of implantable subdermal contraceptive - Z30.46 Plan: * Treatment: 2. E ncounter for screening mammogram for malignant neoplasm of breast I maging: MM Digital Screening Mammogram 3D * Follow Up: 1 Year (Reason: Yearly Line Tender Exam) * Images: Billing Information: * Visit Code: 20784 Preventive Care Est Pt. Age 40-64. 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 She has been in state of good health since her last exam. She has the following concerns: none* She *stopped drinking about 15 months ago, using Naltexone and has been doing well. She has received the Moderna Covid-19 vaccine. Relationship status: *partnered for 15 years. They live together and she feels safe at home. She is sexually active. Sexual partner(s): male. She does not wish to have STI testing. Menses: *irregular since colposcopy, moderate to light bleeding with no schedule. Contraception: Nexplanon - replaced 05/05/2024 - she loves it. Due for replacement in 04/2027. She does *not have vaginal dryness. She does* report she has some mild hot flashes/night sweats. The patient has had an abnormal pap smear within the last 5 years - h/o abno pap with LEEP in her teens, and WNL until 2022 Her most recent pap smear was 01/14/24 - NIL, neg HR HPV. The previous pap was 12/16/22 - atypical endocervical cells, neg HR HPV. Colposcopy and ECC were negative. She is due for a pap today. She has not been diagnosed with breast cancer. She does *not have a family history of breast cancer. She has *not yet had a mammogram. The patient does* exercise. She exercises x 6-7 days/week by walking 2 miles/day. She does strength training here and there. . Examination Category Sub-Category Detail Notes Category Not es General Examination GENERAL APPEARANCE: in no ac abbie distress, well developed, well nourished, drawer in jacquard loom present in room HEAD: normocephalic, atrau matic NECK/THYROID: neck supple, full ra nge of motion, thyroid normal ABDOMEN: soft, non-tender, no n distended without masses or hepatosplenomegay NEUROLOGIC: alert and oriented, gait normal SKIN: normal, good turgor, no rashes, no suspicious lesions EXTREMITIES: Nexplanon palpable o gavi triceps BACK: no costovertebral an gle tenderness BREASTS: normal, no dimpling, no discharge, no drainage, no masses palpable bilaterally, nontender LYMPH NODES: no axillary or supra clavicular adenopathy RECTAL: normal tone, no mass es palpable PSYCH: alert, oriented, cog nitive function intact, cooperative with exam, good eye contact, mood/affect full range, speech clear FEMALE GENITOURINARY: Vulva without lesi ons or masses, vagina pink without abnormal discharge, lesions or masses, cervix appears normal and is not tender to palpation, uterus is normal size, mobile, nontender and anteverted, ovaries are not palpable
[2025-01-20 13:34] VITALS: BP 132/82; PULSE 82; RESP 16; TEMP 36.8; O2SAT 98; BMI 30.7
--- NOTE | 2025-01-20 13:34 | A.OFFPC_ITS ---
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 She is planning to taper off Wellbutrin. Patient has been trying to quit smoking unsuccessfully. 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 1. Little interest or pleasure in doing things: not at all 2. Feeling down, depressed, or hopeless: several days 3. Trouble falling or staying asleep, or sleeping too much: not at all 4. Feeling tired or having little energy: several days 5. Poor appetite or overeating: not at all 6. Feeling bad about yourself - or that you are a failure or have let yourself or your family down: not at all 7. Trouble concentrating on things, such as reading the newspaper or watching television: not at all 8. Moving or speaking so slowly that other people could have noticed. Or the opposite - being so fidgety or restless that you have been moving around a lot more than usual: not at all 9. Thoughts that you would be better off or of hurting yourself in some way: not at all Total score: 2 Depression Screening Interpretation: Negative Depression Screening Done: Yes 42450 - PHQ-9 Billing: Yes Source: Developed by Drs. Delmer Hyatt, Maryjane Adams, Alexis Sears and colleagues, with an educational sharan from [employer]. Thrive Questionnaire Date Thrive assessed: 01/20/25 I am a: Patient What is your living situation today?: I have a steady place to live Within the past 12 months, did the food you bought not last and you didn't have the money to get more?: Never true Within the past 12 months, did you worry whether your food would run out before you got money to buy more?: Never true Do you have trouble paying for medicines?: No Do you have trouble getting transportation to medical appointments?: No Do you have trouble paying your heating and electricity bill?: No Do you have trouble taking care of your child, family member or friend?: No Do you have trouble with day-to-day activities such as bathing, preparing meals, shopping, managing finances, etc.?: No Are you currently unemployed and looking for a job?: No Are you interested in more education?: No Please select the resources that you would like help with: None Currently or been in a relationship where the following occur: No concerns reported THRIVE Score: 0 AUDIT C Alcohol Use Questionnaire (AUDIT-C) 1. How often do you have a drink containing alcohol?: Never 2. How many drinks containing alcohol do you have on a typical day when you are drinking?: 1 or 2 3. How often do you have six or more drinks on one occasion?: Never Total Score: 0 JOSE-7 AMB Questionnaire JOSE-7 Date JOSE - 7 assessed: 01/20/25 Feeling nervous, anxious, or on edge: 1 = Several days Not being able to stop or control worryin = Not at all Worrying too much about different things: 0 = Not at all Trouble relaxin = Not at all Being so restless that it is hard to sit still: 0 = Not at all Becoming easily annoyed or irritable: 1 = Several days Feeling afraid as if something awful might happen: 0 = Not at all Total JOSE-7 score (0-4 normal; 5-9 mild; 10-14 moderate; 15-21 severe): 2 Source: Developed by Drs. Delmer Hyatt, Maryjane Adams, Alexis Sears and colleagues, with an educational sharan from [employer]. JOSE-7 Assessment Billing JOSE-7 Assessment Tool: JOSE-7 Assessment 51483 Review of Systems Const All systems reviewed & are unremarkable except as noted in HPI and below Eyes Reports no additional complaints ENT Reports no additional complaints Card Reports no additional complaints Resp Reports no additional complaints GI Reports no additional complaints Reports no additional complaints Physical exam (Primary Care) Vital Signs: Last Vital Signs Temp 98.3 F 01/20/25 13:34 Pulse 82 01/20/25 13:34 Resp 16 01/20/25 13:34 BP 132/82 01/20/25 13:34 Pulse Ox 98 01/20/25 13:34 Oxygen Delivery Method Room Air 01/20/25 13:34 BMI result Body Mass Index 30.7 Tobacco/Smoking Status: Tobacco use Status Tobacco use date assessed 01/20/25 01/20/25 13:40 Patient Tobacco Use Status Current everyday Tobacco 01/20/25 13:40 e-Cigarette/Vaping Use Former Use 01/20/25 13:40 PHQ-9: PHQ-9 Score PHQ-9: Total score 2 01/20/25 13:40 Depression Screening Interpretation: Negative Thrive Assessment: Date of Thrive Assessment Date Thrive assessed 01/20/25 01/20/25 13:40 Currently or been in a relationship where the following occur: No concerns reported Const General: no acute distress HENMT Head: Yes normal to inspection Ears: hearing grossly normal bilaterally Mouth: Normal oral and palatal mucosa present Eyes General: appearance normal, both eyes and all related structures Neck Neck: Yes no lymphadenopathy and Yes supple Resp Effort & Inspection: normal respiratory effort Auscultation: clear to auscultation bilaterally Cardio Rhythm: regular rhythm Heart sounds: S1 normal heart sound present and S2 normal heart sound present GI Inspection: Yes normal to inspection Palpation (GI): Soft to palpation Percussion: Yes normal to percussion Auscultation: normal bowel sounds Coding Level of Care Code Est Pt Prev Care 40-64y(57495) Diagnoses EtOH dependence F10.20 Annual physical exam Z00.00 Heart murmur R01.1 Additional Codes JOSE-7 Assessment Billing - JOSE-7 Assessment Tool: JOSE-7 Assessment 51139 ([id number]) PHQ-9 - 68232 - PHQ-9 Billing: Yes ([id number]) Assessment & Plan Assessment & Plan (1) EtOH dependence: Comment: IN COUNSELING AND AA PROGRAM SINCE 2022 Code(s): F10.20 - Alcohol dependence, uncomplicated Category: Medical Plan: Patient has been sober for over a year (2) Annual physical exam: Code(s): Z00.00 - Encounter for general adult medical examination without abnormal findings Category: Medical Plan: Well-balanced diet regular physical activity discussed with the patient mammogram will be scheduled. Patient is up-to-date with the Pap smear by envelope addresser (3) Heart murmur: Comment: ECHO 01/18 MVR mild, nl EF Code(s): R01.1 - Cardiac murmur, unspecified Category: Medical Plan: Repeat echo next year Orders: Orders MM screening mammo BI Today Z12.31 - Encounter for screening mammogram for malignant neoplasm of breast Comprehensive [place]. Panel Fast 1 Year Z00.00 - Encounter for general adult medical examination without abnormal findings Lipid Panel 1 Year Z00.00 - Encounter for general adult medical examination without abnormal findings TSH reflex Free T4 1 Year Z00.00 - Encounter for general adult medical examination without abnormal findings Vitamin D 25-OH Total 1 Year Z00.00 - Encounter for general adult medical examination without abnormal findings Complete Blood Count Auto Diff 1 Year Z00.00 - Encounter for general adult medical examination without abnormal findings UA w Microscopic 1 Year Z00.00 - Encounter for general adult medical examination without abnormal findings
== END 2025-01-20 14:13 | disposition home or self-care (01) ==
LOC: HO.HMCC 13:15
PROVIDERS: PCP Internal Medicine; Visit Provider Internal Medicine
DX: F10.20 Alcohol dependence, uncomplicated (principal); Z00.00 Encounter for general adult medical examination without abnormal findings; R01.1 Cardiac murmur, unspecified

== ENCOUNTER → 2025-01-20 13:15 | Outpatient (BNVA) | payer OTHER, SELFPAY | PROVIDERS: PCP Internal Medicine; Visit Provider Internal Medicine | DX: Z00.00 Encounter for general adult medical examination without abnormal findings (principal); R01.1 Cardiac murmur, unspecified; F17.200 Nicotine dependence, unspecified, uncomplicated; F10.20 Alcohol dependence, uncomplicated; Z79.899 Other long term (current) drug therapy | CPT/HCPCS: 96127; 99396 ==